=== PATIENT | female | born 1950 | race Two or more races ===

== ENCOUNTER 2021-09-26 13:10 | Emergency (ER) | payer SELFPAY ==
[~2021-09-26] VITALS: Ht 147.3 cm; Wt 61.7 kg
[2021-09-26] MEDS ORDERED: cefTRIAXone SOD 1,000 MG VL IM ONE (14:15)
[2021-09-26] MEDS ORDERED: PROM1SOL4 PO ×2 (14:16→14:55)
[2021-09-26] MEDS ORDERED: AZIT500T66 PO ×2 (14:16→14:55)
[2021-09-26] MEDS ORDERED: ALBU108A5 IN ×2 (14:16→14:55)
[2021-09-26 14:45] VITALS: BP 138/72
== END 2021-09-26 15:04 | disposition home or self-care (01) ==
LOC: ER 13:10
DX: J20.9 Acute bronchitis, unspecified (principal); J03.90 Acute tonsillitis, unspecified; E11.9 Type 2 diabetes mellitus without complications; I10 Essential (primary) hypertension; Z90.49 Acquired absence of other specified parts of digestive tract
CPT/HCPCS: 71046; 96372; 99283; J0696